=== PATIENT | female | born 2005 | race Caucasian/White ===

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

== ENCOUNTER 2023-10-23 15:13 | Emergency (ER) | payer OTHER ==
[~2023-10-23] VITALS: Ht 175.3 cm; Wt 96.6 kg
[2023-10-23] MEDS ORDERED: IBUP-1955 PO (16:54)
[2023-10-23 17:05] VITALS: BP 134/64; TEMP 98.4; O2SAT 100
== END 2023-10-23 17:05 | disposition home or self-care (01) ==
LOC: ER 15:25
DX: R07.89 Other chest pain (principal)
CPT/HCPCS: 71045-TC

== ENCOUNTER 2023-12-29 20:25 | Emergency (ER) | payer OTHER ==
[~2023-12-29] VITALS: Ht 165.1 cm; Wt 90.7 kg
[2023-12-29] MEDS ORDERED: ACET-868 PO (22:23)
[2023-12-29 22:37] VITALS: BP 125/78; TEMP 99.2; O2SAT 100
== END 2023-12-29 22:37 | disposition home or self-care (01) ==
LOC: ER 20:28
DX: U07.1 COVID-19 (principal)
CPT/HCPCS: 86403-TC; 87070-TC

== ENCOUNTER 2024-06-07 14:17 | Emergency (ER) | payer OTHER ==
[~2024-06-07] VITALS: Ht 175.3 cm; Wt 90.7 kg
[~2024-06-07 14:17] MED LIST changes: +ACET-868 PO
[2024-06-07 14:40] VITALS: BP 115/74; TEMP 98.7; O2SAT 98
== END 2024-06-07 15:30 | disposition home or self-care (01) ==
LOC: ER 14:19
DX: B34.9 Viral infection, unspecified (principal); R05.9 Cough, unspecified; R11.10 Vomiting, unspecified; J02.9 Acute pharyngitis, unspecified; Z20.822 Contact with and (suspected) exposure to COVID-19

== ENCOUNTER 2024-10-26 22:07 | Emergency (ER) | payer OTHER ==
[~2024-10-26] VITALS: Ht 175.3 cm; Wt 83.9 kg
[2024-10-26 22:42] VITALS: BP 144/94; TEMP 98.4
[2024-10-26] MEDS ORDERED: IBUP-1490 PO (22:57)
[2024-10-26] MEDS ORDERED: IBUPROFEN 600 MG TABLET ONE (23:01)
[2024-10-26] MEDS ORDERED: ACETAMINOPHEN ES 500 MG TABLET ONE (23:01)
[2024-10-26] MEDS: ACETAMINOPHEN ES 500 MG TABLET PO ONE (23:04)
[2024-10-26] MEDS: IBUPROFEN 600 MG TABLET PO ONE (23:04)
[2024-10-26 23:05] VITALS: O2SAT 97
== END 2024-10-26 23:06 | disposition home or self-care (01) ==
LOC: ER 22:15
DX: S16.1XXA Strain of muscle, fascia and tendon at neck level, initial encounter (principal); Z79.899 Other long term (current) drug therapy; V49.40XA Driver injured in collision with unspecified motor vehicles in traffic accident, initial encounter; Y93.89 Activity, other specified; Y92.415 Exit ramp or entrance ramp of street or highway as the place of occurrence of the external cause; Y99.8 Other external cause status